=== PATIENT | female | born 1930 | race African-American/Black ===

== ENCOUNTER → 2017-12-22 | Outpatient (CLI) | payer OTHER | LOC: CAT 16:10 | DX: M41.84 Other forms of scoliosis, thoracic region (principal); I25.84 Coronary atherosclerosis due to calcified coronary lesion; J41.1 Mucopurulent chronic bronchitis; J98.4 Other disorders of lung ==

== ENCOUNTER → 2018-01-08 | Outpatient (CLI) | payer OTHER | LOC: ULTRA 10:09 | DX: E04.2 Nontoxic multinodular goiter (principal); Z85.3 Personal history of malignant neoplasm of breast ==

== ENCOUNTER → 2018-08-04 | Outpatient (CLI) | payer OTHER ==
[~2018-08-04] VITALS: Ht 167.6 cm; Wt 71.7 kg
[~2018-08-04] MED LIST: ASPIR 8181 MG PO; BONIVA150 MG PO; FISH OIL 1,001000 M2 PO; LISINOPRIL-HCT1 EACH PO; NEURONTIN 300300 M1 PO; TUMS PO
--- NOTE | ~2018-08-04 | HPC ---
[facility] [address] [place] [address] PAIN MANAGEMENT CONSULTATION Name: SHAKEEL MAXWELL Room #: REG [facility]#: [id number] Admission: 08/04/18 Attend Phys: Sumanth Pat DO Discharge: Date of : 34 Report #: [id number] THIS REPORT FOR: //name// CC: JUANY Pat DATE OF SERVICE: 08/04/2018 REFERRING PHYSICIAN: DIOGO Spence. CHIEF COMPLAINT: Low back pain, right lower extremity pain with paresthesias. HISTORY OF PRESENT ILLNESS: As you know, the patient is an 88-year-old female who has been referred to our service by her orthopedic team to trial a possible epidural injection under fluoroscopic guidance to address suspected lumbar radiculopathy. The patient has been evaluated [facility] for [facility] issues, it appears that they have ruled out the possibility of her hip being a problem. They believed that part of her symptoms may be related to the findings at the L4-L5 level, and the patient was subsequently referred to our clinic to trial a lumbar epidural injection to address the broad-based right paracentral disk protrusion at this level. The patient indicates today pain is periodic, describes the pain as sharp, aching, intermittent numbness and tingling. She places current pain score 8/10, daily average at 8/10, worst pain has been 8/10. The patient states pain is exacerbated with activity such as walking, standing and climbing stairs, improves with lying down. She has been referred to our service to trial a lumbar epidural injection under fluoroscopic guidance to address lumbar radicular symptoms secondary to the findings at the L4-L5 level. PAST MEDICAL HISTORY: 1. Hypertension. 2. History of breast cancer, status post surgery. 3. Osteoarthritis. PAST SURGICAL HISTORY: 1. Breast surgery for cancer. 2. Hysterectomy. 3. Chest surgery. SOCIAL HISTORY: The patient denies tobacco, IV or illicit drug use. Admits to approximately 1 alcoholic beverage per day. She is retired, retired years ago. She is receiving disability income. She is not in litigation in regards to pain. She is accompanied by daughter present in room today. [facility] [address] [place] [address] PAIN MANAGEMENT CONSULTATION Name: SHAKEEL MAXWELL [place] [id number] Admission: 08/04/18 Attend Phys: Sumanth Pat DO Discharge: Date of : 32 Report #: [id number] REVIEW OF SYSTEMS: Positive for weight gain, glaucoma, cataracts, low back pain and right lower extremity pain and paresthesia, difficulty ambulating with pain. All other review of systems negative per 12-point review of systems other than those listed in history of present illness. Pain impact score 24/70, indicating mild interference of daily activities secondary to pain. IMAGING: MRI of the lumbar spine obtained on 07/01/2018 shows degenerative changes and facet degenerative changes throughout the lumbar spine with mild central canal stenosis L4-L5 level. There is lateral recess narrowing bilaterally at that level. Broad-based right paracentral disk protrusion at this level as well. There is high-grade lateral recess stenosis on the right, moderate to the left. PQRS: The patient has known osteoarthritic changes in the low back, bilateral hips and bilateral knees. No rheumatoid arthritis. She is placing pain intensity today at 8/10. She is a fall risk, but has not had fallen in the last 3 months. She does use gait assistive devices. She is not on blood thinners. She is treated for hypertension. She is not on opioid. She has a low opiate addiction potential. Pain impact score 24/70, indicating [id number] interference of daily activities secondary to pain. PHYSICAL EXAMINATION: VITAL SIGNS: Blood pressure 176/78, pulse 80, respiratory rate 16 and unlabored. The patient is 100% on room air. Height 5 feet 6 inches tall, weight 158 pounds, BMI calculated 25.5. GENERAL: Well-developed, well-nourished, well-hydrated 88-year-old female, appearing her stated age, placing pain score today at 8/10. HEENT: Normocephalic, atraumatic. Pupils equal, round, reactive to light. Extraocular muscles are intact. NEUROLOGIC: Speech is fluent. The patient deemed a good historian. LUNGS: Clear. No wheeze, rhonchi or rales. CARDIOVASCULAR: Regular. No appreciable gallop, no rub. ABDOMEN: Soft and nontender. EXTREMITIES: Show no clubbing, no cyanosis, no edema. MUSCULOSKELETAL: Lower extremity strength is symmetrical, but deconditioned bilaterally. Strength rated at 4+/5. Muscle bulk and tone is symmetrical in comparing right lower extremity to left. Seated straight leg raising negative. Supine straight leg raising mildly positive right. Gianna test is negative. Gait is antalgic favoring right lower extremity over left. Modified Gaenslen positive for some axial low back pain, no radiation of symptoms. Lumbar provocation testing met with increasing axial back pain due to facet changes, no radicular component. Ankle clonus negative. Babinski is negative. ASSESSMENT: [facility] [address] [place] [address] PAIN MANAGEMENT CONSULTATION Name: SHAKEEL MAXWELL Room #: REG [facility] [place]#: [id number] Admission: 08/04/18 Attend Phys: Sumanth Pat DO Discharge: Date of : 32 Report #: [id number] 1. Symptomatic lumbar radiculopathy. 2. 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 3. Lumbosacral spondylosis with radiculopathy. 4. Degeneration of the lumbar spine. 5. 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 6. Chronic intractable pain. PLAN: 1. Based on today's physical exam and history the patient provided, the description the patient uses in regards to pain as well as the location of symptoms, the likely source of the patient's pain is lumbar radiculopathy. It does appear the patient has changes at the L4-L5 level consistent with her current distribution of symptoms. She has been referred to our clinic by her orthopedic surgery team to trial an epidural injection and determine if symptoms could improve with injection therapy. We have discussed this with the patient today. We also discussed other treatment options, which would include the followin. We discussed physical therapy, stretching exercise, core strengthening as a treatment option. We discussed medication management with neuropathic pain medication and consistent nonsteroidal anti-inflammatory, assuming she can tolerate these medications. We discussed the epidural injection, for which the patient was referred to our clinic and surgical options. After reviewing the risks and benefits of all the proposed treatment options, the patient chose to move forward with a lumbar epidural injection. 3. We have advised the patient of the risks and benefits of a lumbar epidural injection. These risks include but are not necessarily limited to bleeding, bruising, infection, worsening pain, no relief of pain, also risk of temporary or permanent muscle weakness, temporary or permanent nerve damage, possible paralysis and . The patient states understood and wished to proceed. 4. No medication changes made at today's visit. The patient to continue current medical therapy as previously prescribed. 5. We will see the patient back in followup visit in approximately one month. At that time, review the efficacy of today's lumbar epidural injection to determine if next in the series of epidural injections might be recommended. 6. We wish to thank the referring team for the opportunity to see this patient in consultation. We will keep you apprised of response to treatment as we address lumbar radicular symptoms. Again, we wish to thank you for the opportunity to see the patient in consultation. PROCEDURE NOTE [address] [address] PAIN MANAGEMENT CONSULTATION Name: SHAKEEL MAXWELL Room #: REG [facility]#: [id number] Admission: 08/04/18 Attend Phys: Sumanth Pat DO Discharge: Date of : 32 Report #: [id number] DESCRIPTION OF PROCEDURE: L5-S1 paramedian epidural steroid injection under fluoroscopic guidance. This is the first procedure of the first series that the patient is undergoing. After obtaining written consent, the patient was taken back to the fluoroscopy suite, placed in a prone position with pillow under the abdomen to decrease lumbar lordosis. The skin overlying the lumbosacral area was then prepped and draped in aseptic fashion. The L5-S1 vertebral interspace was then identified by AP fluoroscopy. The skin and subcutaneous tissue overlying the target site of injection was anesthetized with 3 mL 1% lidocaine. A 20-gauge 3-1/2 inch Tuohy needle was then advanced under fluoroscopic guidance towards the epidural space using a paramedian approach. The epidural space was identified using loss of resistance to air technique. After negative aspiration for heme or cerebrospinal fluid, a total of 1mL of Omnipaque was injected. A lumbar epidurogram was confirmed using both AP and lateral fluoroscopy. After negative aspiration for heme or cerebrospinal fluid, 5 mL of a solution containing 2 mL 40 mg per mL, 80 mg total triamcinolone, 3 mL lidocaine 1% was injected in increments. Contrast spread was noted posterior epidural space. The needle was then retracted approximately half way and needle tract flushed with 1 mL of 1% lidocaine. Needle was then removed. There were no apparent sensory or motor deficits in the lower extremity following the procedure. A sterile bandage was placed over the injection site. The heart rate, pulse, oximetry and blood pressure were continuously monitored after the procedure. There were no apparent complications. The patient tolerated the procedure well and was carefully escorted to the recovery room in stable condition. There were no apparent complications. After meeting discharge criteria, the patient was then discharged home. By: [id number] Sumanth Pat DO /nt
[2018-08-04 13:52] VITALS: BP 176/78
[2018-08-04 13:58] VITALS: BP 176/78
--- NOTE | 2018-08-04 14:19 | NUR ---
Pain Clinic Assessment: 1. History of Osteoarthritis: hips History of Rheumatoid Arthritis: n 2. Height: 5 ft. 6 in. 167.6 cm. Weight: 158.0 lb. oz. 71.668 kg. Patient's BMI: 25.5 3. Vital Signs: BP: 176/78 Pulse: 80 Resp: 16 Temp: 02 Sat: 100 ECG Mon: 4. Pain Intensity: 8 5. Fall Risk: Dizziness: N Needs help standing or walking: Y Fallen in the last 3 months: N Fall risk comments: 6. Patient on Blood Thinner: None 7. History of Hypertension: Y 8. Opioid Therapy greater than 6 weeks: N Opiate Contract Signed: 9. Risk Assessment Tool Provided: low-0 10. Functional Assessment Tool: 11. Recreational Drug Use: Never Drug Type: Tobacco Use: Former Smoker Tobacco Type: Amount or Packs/day: How Many Years: Alcohol Use: Yes Frequency: Weekly Quant: 1
== END | disposition home or self-care (01) ==
LOC: PAIN 07-29 12:42
DX: M54.16 Radiculopathy, lumbar region (principal); G89.29 Other chronic pain; Z87.891 Personal history of nicotine dependence; Z85.3 Personal history of malignant neoplasm of breast; Z98.890 Other specified postprocedural states; Z91.041 Radiographic dye allergy status; Z88.8 Allergy status to other drugs, medicaments and biological substances; Z79.899 Other long term (current) drug therapy